=== PATIENT | female | born 1945 | race Caucasian/White ===

== ENCOUNTER → 2017-01-13 | Outpatient (CLI) | payer OTHER ==
[2016-06-02 11:00] VITALS: BP 120/70
[~2017-01-13] MED LIST: ASPI-482 PO; BIOT25006 PO; CHOL10003 PO; CITA20TA5 PO; CLOP75TA PO; CYAN10005 PO; DOCU-109 PO; FERR-26 PO; GABA-585 PO; LEVE500T6 PO; LEVO25TA4 PO; METO-313 PO; METO25TA4 PO; NAPR220C4 PO; PANT40TA5 PO; PHEN100C PO; ROPI1TAB PO; SIMV10TA3 PO
--- NOTE | 2017-01-13 11:06 | RAD ---
DATE: January 13, 2017 EXAM: DIGITAL DIAGNOSTIC BILATERAL, BREAST LEFT. LEFT BREAST SONOGRAPHY HISTORY: History of left breast cancer 10 years ago (?) treated with lumpectomy and radiation therapy. The patient's physician found a left breast lump. Not sure how long it has been there. The patient has not noticed anything new. COMPARISON: Previous mammograms are not available. This is considered a new baseline study. This study was interpreted with the benefit of Computerized Aided Detection (CAD). FINDINGS: The breast parenchyma shows scattered fibroglandular densities. The left breast is smaller in comparison to the right side and there is scarring of the left breast from the lumpectomy. A metallic BB was placed in the area of the palpable lump. 3 large calcified oil cysts are seen secondary to fat necrosis from previous surgery. The largest measures 2.6 cm. There are no other dominant suspicious masses, no suspicious pleomorphic microcalcifications or evidence of architectural distortion. LEFT BREAST SONOGRAPHY: High-resolution sonography of the palpable lump of left breast was performed. 2 of the calcified oil cysts are seen with acoustic shadowing from the dense calcification. The largest measures 2.5 cm in size. Smaller one measures almost 1 cm in size. IMPRESSION: No mammographic indicators for malignancy. Palpable lump corresponds to a cluster of 3 large calcified oil cysts related to fat necrosis from previous surgery. This is a benign finding. BI-RADS CATEGORY: 2 BENIGN FINDING RECOMMENDED FOLLOW-UP: 12M 12 MONTH FOLLOW-UP PQRS compliance statement: Patient information was entered into a reminder system with a target due date January 14, 2018 for the next mammogram. Mammography is a sensitive method for finding small breast cancers, but it does not detect them all and is not a substitute for careful clinical examination. A negative mammogram does not negate a clinically suspicious finding and should not result in delay in biopsying a clinically suspicious abnormality. "Our facility is accredited by the [employer]ography [employer]." The patient's breast density may affect the ability of mammography to detect breast cancer. There are 4 categories of breast density, A, B, C and D. Breast density A means that most of the breast tissue is replaced with adipose tissue and therefore is not dense. Breast density B means that the breast tissue is mildly dense and scattered. Breast density C means that the breast tissue is heterogeneously dense. Breast density D means that the breast tissue is very dense. Breast densities especially C and D may decrease the sensitivity of mammography to detect breast cancer. Therefore, the patient may benefit from 3-D breast mammography (3D breast tomography) as a part of their screening mammogram. Insurance may or may not pay for this additional imaging. The patient's breast density based on today's mammogram is category B.
== END | disposition home or self-care (01) ==
LOC: MAMMO 09:44
PROVIDERS: ATTEND Internal Medicine
DX: C50.912 Malignant neoplasm of unspecified site of left female breast (principal); N63 Unspecified lump in breast; M79.89 Other specified soft tissue disorders; Z85.3 Personal history of malignant neoplasm of breast
CPT/HCPCS: 76641; G0204; 77066

== ENCOUNTER → 2017-04-14 | Outpatient (CLI) | payer OTHER ==
[2017-03-05 15:09] VITALS: BP 131/66
[~2017-04-14] MED LIST changes: +LISI-338 PO
--- NOTE | 2017-04-14 12:29 | CARD ---
APPROVED REPORT EXAM: Two-dimensional and M-mode echocardiogram with Doppler and color Doppler. Other Information Quality : Good INDICATION Ischemic Cardiomyopathy 2D DIMENSIONS RVDd2.5 (2.9-3.5cm)Left Atrium(2D)3.6 (1.6-4.0cm) IVSd0.9 (0.7-1.1cm)Aortic Root(2D)2.9 (2.0-3.7cm) LVDd5.0 (3.9-5.9cm)LVOT Diameter2.0 (1.8-2.4cm) PWd0.9 (0.7-1.1cm)LVDs2.9 (2.5-4.0cm) FS (%) 30.0 %SV84.3 ml LVEF(%)60.0 (>50%) Aortic Valve AoV Peak Samuel.139.3cm/sAoV VTI29.1cm AO Peak GR.7.8mmHgLVOT Peak Samuel.82.5cm/s LVOT VTI 19.27cmAO Mean GR.4mmHg DAYANARA (VMAX)1.37vo9OOD (VTI)2.07cm2 AI P 1/2 Stxb427sn Mitral Valve MV E Oidycfvg09.9cm/sMV DECEL [id number] MV A Xafobovy25.8cm/sMV HZX23yw E/A Ratio0.6MVA (PHT)3.09cm2 TDI E/Lateral E'9.8E/Medial E'10.7 Tricuspid Valve TR P. Vfzfajnt256ch/sRAP WQBEBDGZ8icWh TR Peak Gr.70qiSnTKDO40tqHg Pulmonary Vein S1 Gkugezez20.4cm/sD2 Mnilaqkq20.7cm/s LEFT VENTRICLE The left ventricle is normal size. There is normal left ventricular wall thickness. The left ventricu lar systolic function is normal. The Ejection Fraction is 55-60%. There is normal LV segmental wall m otion. Transmitral Doppler flow pattern is Grade I-abnormal relaxation pattern. RIGHT VENTRICLE The right ventricle is normal size. The right ventricular systolic function is normal. ATRIA The left atrium size is normal. The right atrium size is normal. The interatrial septum is intact wit h no evidence for an atrial septal defect or patent foramen ovale as noted on 2-D or Doppler imaging. AORTIC VALVE The aortic valve is calcified but opens well. Doppler and Color Flow revealed mild to moderate aortic regurgitation. There is no significant aortic valvular stenosis. MITRAL VALVE The mitral valve is normal in structure and function. There is no evidence of mitral valve prolapse. There is no mitral valve stenosis. Doppler and Color-flow revealed trace to mild mitral regurgitation . TRICUSPID VALVE The tricuspid valve is normal in structure and function. Doppler and Color Flow revealed mild tricusp id regurgitation. There is mild pulmonary hypertension. The PA pressure was estimated at 32 mmHg. The re is no tricuspid valve stenosis. PULMONIC VALVE The pulmonary valve is normal in structure and function. Doppler and Color Flow revealed trace pulmon ic valvular regurgitation. There is no pulmonic valvular stenosis. GREAT VESSELS The aortic root is normal in size. The ascending aorta is normal in size. The IVC is normal in size a nd collapses >50% with inspiration. PERICARDIAL EFFUSION There is no evidence of significant pericardial effusion. Critical Notification Critical Value: No <Conclusion> The left ventricular systolic function is normal. The Ejection Fraction is 55-60%. There is normal LV segmental wall motion. Transmitral Doppler flow pattern is Grade I-abnormal relaxation pattern. Mild to moderate aortic regurgitation. Trace to mild mitral regurgitation. Mild tricuspid regurgitation. The PA pressure was estimated at 32 mmHg. There is no evidence of significant pericardial effusion.
== END | disposition home or self-care (01) ==
LOC: ECHO 09:41
PROVIDERS: ATTEND Internal Medicine Cardiovascular Disease
DX: I08.2 Rheumatic disorders of both aortic and tricuspid valves (principal); I25.5 Ischemic cardiomyopathy
CPT/HCPCS: 93306

== ENCOUNTER 2017-06-03 16:49 | Emergency (ER) | payer OTHER ==
[~2017-06-03] VITALS: Ht 167.6 cm; Wt 84.4 kg
[2017-06-03] MEDS ORDERED: levETIRAcetam 1,000 MG in IV DEXTROSE 5% 100 ML IV ONE (17:15)
--- NOTE | 2017-06-03 17:17 | PHYS DOC ---
Past Medical History Past Medical History: CVA, Depression, GERD, Hypothyroid, HI, Seizure, Other Additional Past Medical Histor: chronic back pain,OVERDOSE Past Surgical History: Other Additional Past Surgical Histo: left lumpectomy, gastric sleeve,STENT PLACEMENT Alcohol Use: Sober Drug Use: None Adult General Chief Complaint Chief Complaint: UPPER EXTREMITY PAIN [facility] HPI Patient is a 72 year old female who presents with in planes of possible seizures that involved shaking of the left arm and leg but no loss of consciousness intermittent over the past 12 hours she's also felt anxious. Denies any headache blurry vision difficulty swallowing or speaking or moving her arms or legs. She is a cane or a walker for assistance at times. Previous stroke giving her left-sided weakness and a prior admission back in February for seizure disorder and elevated troponin with a negative cardiac stress test. Also history of alcohol abuse lives by herself. Review of the record shows that she takes Keppra and Dilantin although she is not sure what she takes. Review of Systems Review of Systems Constitutional: Denies fever or chills [] Eyes: Denies change in visual acuity, redness, or eye pain [] HENT: Denies nasal congestion or sore throat [] Respiratory: Denies cough or shortness of breath [] Cardiovascular: No additional information not addressed in HPI [] GI: Denies abdominal pain, nausea, vomiting, bloody stools or diarrhea [] : Denies dysuria or hematuria [] Musculoskeletal: Denies back pain or joint pain [] Integument: Denies rash or skin lesions [] Neurologic: Denies headache, focal weakness or sensory changes [] Endocrine: Denies polyuria or polydipsia [] All other systems were reviewed and found to be within normal limits, except as documented in this note. Current Medications Current Medications Current Medications Medications (Trade) Dose Ordered Sig/Susie Start Time Stop Time Status Last Admin Dose Admin Ceftriaxone Sodium 50 ml @ 100 mls/hr 1X ONCE 06/03/17 20:00 06/03/17 20:29 DC 06/03/17 20:06 100 MLS/HR Levetiracetam 1000 mg/Dextrose 110 ml @ 440 mls/hr 1X ONCE 06/03/17 17:15 06/03/17 17:29 Cancel Levetiracetam 1000 mg/Sodium Chloride 110 ml @ 440 mls/hr 1X ONCE 06/03/17 17:20 06/03/17 17:29 DC 06/03/17 17:40 440 MLS/HR Lorazepam (Ativan) 1 mg 1X ONCE 06/03/17 17:15 06/03/17 17:16 DC 06/03/17 17:21 1 MG Allergies Allergies Allergies Coded Allergies Type Severity Reaction Last Updated Verified No Known Drug Allergies 06/30/15 No Physical Exam Physical Exam Constitutional: Well developed, well nourished, no acute distress, non-toxic appearance. [] HENT: Normocephalic, atraumatic, bilateral external ears normal, oropharynx moist, no oral exudates, nose normal. [] Eyes: PERRLA, EOMI, conjunctiva normal, no discharge. [] Neck: Normal range of motion, no tenderness, supple, no stridor. [] Cardiovascular:Heart rate regular rhythm, no murmur [] Lungs & Thorax: Bilateral breath sounds clear to auscultation [] Abdomen: Bowel sounds normal, soft, no tenderness, no masses, no pulsatile masses. [] Skin: Warm, dry, no erythema, no rash. [] Back: No tenderness, no CVA tenderness. [] Extremities: No tenderness, no cyanosis, no clubbing, ROM intact, no edema. [] Neurologic: Alert and oriented X 3, normal motor function, normal sensory function, no focal deficits noted. Intermittent tremors and shakes involving the left arm and left leg are completely conscious and talking during the entire episodes last seconds at a time. [] Psychologic: Affect normal, judgement normal, mood normal. [] Current Patient Data Vital Signs Vital Signs Date Time Temp Pulse Resp B/P (MAP) Pulse Ox O2 Delivery O2 Flow Rate FiO2 06/03/17 20:00 62 162/76 (104) 96 Room Air 06/03/17 17:43 20 06/03/17 16:58 98.1 98.1 Lab Values Laboratory Tests Test 06/03/17 17:11 06/03/17 17:55 White Blood Count 5.7 x10^3/uL (4.0-11.0) Red Blood Count 3.75 x10^6/uL (3.50-5.40) Hemoglobin 11.6 g/dL (12.0-15.5) L Hematocrit 35.1 % (36.0-47.0) L Mean Corpuscular Volume 94 fL (79-100) Mean Corpuscular Hemoglobin 31 pg (25-35) Mean Corpuscular Hemoglobin Concent 33 g/dL (31-37) Red Cell Distribution Width 12.9 % (11.5-14.5) Platelet Count 189 x10^3/uL (140-400) Neutrophils (%) (Auto) 41 % (31-73) Lymphocytes (%) (Auto) 45 % (24-48) Monocytes (%) (Auto) 11 % (0-9) H Eosinophils (%) (Auto) 4 % (0-3) H Basophils (%) (Auto) 0 % (0-3) Neutrophils # (Auto) 2.3 x10^3uL (1.8-7.7) Lymphocytes # (Auto) 2.5 x10^3/uL (1.0-4.8) Monocytes # (Auto) 0.6 x10^3/uL (0.0-1.1) Eosinophils # (Auto) 0.2 x10^3/uL (0.0-0.7) Basophils # (Auto) 0.0 x10^3/uL (0.0-0.2) Sodium Level 143 mmol/L (136-145) Potassium Level 3.7 mmol/L (3.5-5.1) Chloride Level 105 mmol/L (98-107) Carbon Dioxide Level 27 mmol/L (21-32) Anion Gap 11 (6-14) Blood Urea Nitrogen 14 mg/dL (7-20) Creatinine 0.8 mg/dL (0.6-1.0) Estimated GFR (Cockcroft-Gault) 70.7 BUN/Creatinine Ratio 18 (6-20) Glucose Level 85 mg/dL (70-99) Calcium Level 8.9 mg/dL (8.5-10.1) Magnesium Level 1.7 mg/dL (1.8-2.4) L Total Bilirubin 0.3 mg/dL (0.2-1.0) Aspartate Amino Transferase (AST) 21 U/L (15-37) Alanine Aminotransferase (ALT) 23 U/L (14-59) Alkaline Phosphatase 88 U/L (46-116) Troponin I Quantitative < 0.017 ng/mL (0.000-0.055) Total Protein 6.4 g/dL (6.4-8.2) Albumin 3.4 g/dL (3.4-5.0) Albumin/Globulin Ratio 1.1 (1.0-1.7) Phenytoin (Dilantin) Level 3.3 mcg/mL (10.0-20.0) L Phenytoin Last Dose Date Phenytoin Last Dose Time Urine Collection Type Unknown Urine Color Yellow Urine Clarity Clear Urine pH 6.5 Urine Specific Lottie 1.010 Urine Protein Negative mg/dL (NEG-TRACE) Urine Glucose (UA) Negative mg/dL (NEG) Urine Ketones (Stick) Negative mg/dL (NEG) Urine Blood Negative (NEG) Urine Nitrite Negative (NEG) Urine Bilirubin Negative (NEG) Urine Urobilinogen Dipstick 0.2 mg/dL (0.2 mg/dL) Urine Leukocyte Esterase Moderate (NEG) Urine RBC 0 /HPF (0-2) Urine WBC 1-4 /HPF (0-4) Urine Squamous Epithelial Cells Many /LPF Urine Bacteria Moderate /HPF (0-FEW) Urine Mucus Slight /LPF Laboratory Tests 06/03/17 17:11 Laboratory Tests 06/03/17 17:11 EKG EKG EKG shows normal sinus rhythm rate of 63 no STEMI QTC normal. My interpretation Radiology/Procedures Radiology/Procedures CT head negative per radiology report[] Course & Med Decision Making Course & Med Decision Making Pertinent Labs and Imaging studies reviewed. (See chart for details) [The patient was stable during her stay. Blood work and imaging were unremarkable. There was no observed seizure activity. She was loaded with Keppra IV. Urinalysis demonstrated possible urinary tract infection we will give IV Rocephin and placed on Macrobid orally. she was able to ambulate Discussed with results with the patient when told she would be able to go home she said that would be "awesome".] Dragon Disclaimer Dragon Disclaimer This electronic medical record was generated, in whole or in part, using a voice recognition dictation system. Departure Departure Impression: Primary Impression: Occasional tremors Additional Impression: Urinary tract infection Disposition: HOME, SELF-CARE Condition: IMPROVED Referrals: KAVYA PETTIT MD (PCP) Patient Instructions: Urinary Tract Infection, [id number] Scripts Nitrofurantoin Monohyd/M-Cryst (MACROBID 100 MG CAPSULE) 100 Mg Capsule 1 CAP PO BID, #14 CAP Prov: ZENAIDA EVERETT MD 06/03/17 Problem Qualifiers ZENAIDA EVERETT MD Jun 03, 2017 17:17
[2017-06-03 17:23] LABS: BASO % 0 % (0-3); EOS % 4 % (0-3); HEMATOCRIT 35.1 % (36.0-47.0); HEMOGLOBIN 11.6 g/dL (12.0-15.5); LYMPH # 2.5 x10^3/uL (1.0-4.8); LYMPH % 45 % (24-48); MEAN CORPUSCULAR HEMOGLOBIN 31 pg (25-35); MEAN CORPUSCULAR HGB CONC 33 g/dL (31-37); MEAN CORPUSCULAR VOLUME 94 fL (79-100); MONO % 11 % (0-9); NEUT % 41 % (31-73); PLATELET COUNT 189 x10^3/uL (140-400); RED BLOOD COUNT 3.75 x10^6/uL (3.50-5.40); RED CELL DISTRIBUTION WIDTH 12.9 % (11.5-14.5); WHITE BLOOD COUNT 5.7 x10^3/uL (4.0-11.0)
--- NOTE | 2017-06-03 17:42 | RAD ---
CT HEAD WO CONTRAST dated 06/03/2017 5:25 PM Indication:.SEIZURES, LT ARM TINGLING, PRIOR SENT. Comparison: 03/02/2017 Technique: Contiguous axial imaging the head was performed from skull base to vertex. One or more of the following individualized dose reduction techniques were utilized for this examination: 1. Automated exposure control 2. Adjustment of the mA and/or kV according to patient size 3. Use of iterative reconstruction technique Findings: Ventricles and sulci are mildly prominent for age. No midline shift or mass effect. Mild patchy low density in the deep/subcortical periventricular white matter. Remote cortical infarct of the right frontal lobe and right parietal lobe, unchanged. No hemorrhage or extra axial collection. Posterior fossa and brainstem unremarkable. Visualized paranasal sinuses and mastoid air cells are clear. No apparent calvarial abnormality. IMPRESSION: 1. No evidence of acute intracranial hemorrhage or mass. 2. Mild chronic small vessel ischemic changes and atrophy. There are remote right frontal and right parietal infarcts, unchanged. Electronically signed by: Arslan Mane MD (06/03/2017 5:39 PM) [id number]
[2017-06-03 17:45] LABS: ANION GAP 11 (6-14); BLOOD UREA NITROGEN 14 mg/dL (7-20); BUN/CREATININE RATIO 18 (6-20); CALCIUM 8.9 mg/dL (8.5-10.1); CARBON DIOXIDE 27 mmol/L (21-32); CHLORIDE 105 mmol/L (98-107); CREATININE 0.8 mg/dL (0.6-1.0); GFR 70.7; GLUCOSE 85 mg/dL (70-99); POTASSIUM 3.7 mmol/L (3.5-5.1); SODIUM 143 mmol/L (136-145)
[2017-06-03 17:51] LABS: ALBUMIN 3.4 g/dL (3.4-5.0); ALBUMIN/GLOBULIN RATIO 1.1 (1.0-1.7); ALK PHOS 88 U/L (46-116); ALT (SGPT) 23 U/L (14-59); AST (SGOT) 21 U/L (15-37); MAGNESIUM 1.7 mg/dL (1.8-2.4); TOTAL BILIRUBIN 0.3 mg/dL (0.2-1.0); TOTAL PROTEIN 6.4 g/dL (6.4-8.2)
[2017-06-03 19:26] LABS: BILIRUBIN,URINE NEGATIVE (NEG); GLUCOSE,URINE NEGATIVE (NEG); NITRITE,URINE NEGATIVE (NEG); PH,URINE 6.5; PROTEIN,URINE NEGATIVE (NEG-TRACE); UROBILINOGEN,URINE 0.2 mg/dL (0.2 mg/dL)
[2017-06-03 19:33] LABS: BACTERIA,URINE MODERATE /HPF (0-FEW); RBC,URINE 0 /HPF (0-2); SQUAMOUS EPITHELIAL CELL,UR MANY /LPF
[2017-06-03] MEDS ORDERED: NITR100C62 PO (19:57)
[2017-06-03 20:00] VITALS: BP 162/76
--- NOTE | 2017-06-04 06:32 | EKG ---
[facility] [address] [place] [address] Test Date: 2017-06-03 Test Time: 17:01:57 Pat Name: TERRI LINDSEY Department: Room: Gender: F [employer]ressed [employer] Supervisor: : [id number] Requested By: ZENAIDA EVERETT Order Number: [id number] Reading MD: Niranjan Rodriguez MD Measurements Intervals [place] Rate: 63 P: 36 MS: 154 QRS: 26 QRSD: 74 T: 72 QT: 428 QTc: 441 Interpretive Statements SINUS RHYTHM NON-SPECIFIC ST/T CHANGES Electronically Signed On 06-04-2017 16:10:55 COAGULATING BATH MIXER by Niranjan Rodriguez MD
== END 2017-06-03 20:38 | disposition home or self-care (01) ==
LOC: ER 16:49
DX: R25.1 Tremor, unspecified (principal); N39.0 Urinary tract infection, site not specified; E03.9 Hypothyroidism, unspecified; K21.9 Gastro-esophageal reflux disease without esophagitis; G89.29 Other chronic pain; Z86.73 Personal history of transient ischemic attack (TIA), and cerebral infarction without residual deficits; I25.2 Old myocardial infarction
CPT/HCPCS: 36415; 70450; 80053; 80185; 81001; 83735; 84484; 85025; 87086; 93005; 96365; 96367; 96375; 99285; J0690; J1953; J2060

== ENCOUNTER 2017-08-29 23:07 | Inpatient (IN) | payer OTHER ==
[2017-08-29 23:24] LABS: ADD MAN DIFF? NO
[2017-08-29 23:25] LABS: BASO # 0.1 x10^3/uL (0.0-0.2); BASO % 1 % (0-3); EOS # 0.1 x10^3/uL (0.0-0.7); EOS % 2 % (0-3); HEMATOCRIT 32.6 % (36.0-47.0); HEMOGLOBIN 10.9 g/dL (12.0-15.5); LYMPH # 1.4 x10^3/uL (1.0-4.8); LYMPH % 18 % (24-48); MEAN CORPUSCULAR HEMOGLOBIN 30 pg (25-35); MEAN CORPUSCULAR HGB CONC 34 g/dL (31-37); MEAN CORPUSCULAR VOLUME 90 fL (79-100); MONO # 0.6 x10^3/uL (0.0-1.1); MONO % 8 % (0-9); NEUT # 5.6 x10^3uL (1.8-7.7); NEUT % 71 % (31-73); PLATELET COUNT 192 x10^3/uL (140-400); RED BLOOD COUNT 3.63 x10^6/uL (3.50-5.40); RED CELL DISTRIBUTION WIDTH 13.7 % (11.5-14.5); WHITE BLOOD COUNT 7.9 x10^3/uL (4.0-11.0)
[2017-08-29] MEDS: IV NORMAL SALINE 1000ML BAG 1,000 ML IV (23:30)
[2017-08-29 23:34] LABS: ANION GAP 11 (6-14); BLOOD UREA NITROGEN 19 mg/dL (7-20); BUN/CREATININE RATIO 21 (6-20); CALCIUM 8.2 mg/dL (8.5-10.1); CARBON DIOXIDE 27 mmol/L (21-32); CHLORIDE 107 mmol/L (98-107); CREATININE 0.9 mg/dL (0.6-1.0); GFR 61.7; GLUCOSE 119 mg/dL (70-99); POTASSIUM 3.8 mmol/L (3.5-5.1); SODIUM 145 mmol/L (136-145)
[2017-08-29 23:35] LABS: PARTIAL THROMBOPLASTIN TIME 23 SEC (24-38)
[2017-08-29 23:40] LABS: ALBUMIN 3.1 g/dL (3.4-5.0); ALBUMIN/GLOBULIN RATIO 1.1 (1.0-1.7); ALK PHOS 84 U/L (46-116); ALT (SGPT) 15 U/L (14-59); AST (SGOT) 17 U/L (15-37); TOTAL BILIRUBIN 0.3 mg/dL (0.2-1.0); TOTAL PROTEIN 5.8 g/dL (6.4-8.2)
[2017-08-29 23:42] LABS: TROPONINI < 0.017 ng/mL (0.000-0.055)
[2017-08-30 01:15] LABS: BILIRUBIN,URINE NEGATIVE (NEG); CLARITY,URINE CLEAR; COLOR,URINE YELLOW; GLUCOSE,URINE NEGATIVE (NEG); NITRITE,URINE NEGATIVE (NEG); PROTEIN,URINE 30 mg/dL (NEG-TRACE); UROBILINOGEN,URINE 0.2 mg/dL (0.2 mg/dL)
[2017-08-30 01:22] LABS: BACTERIA,URINE FEW /HPF (0-FEW); RBC,URINE OCC /HPF (0-2); SQUAMOUS EPITHELIAL CELL,UR OCC /LPF; WBC,URINE OCC /HPF (0-4)
[2017-08-30 01:23] LABS: HYALINE CASTS, URINE MODERATE /HPF
[2017-08-30] MEDS ORDERED: ONDANSETRON PF 4 MG/2 ML VIAL. IV (02:00)
[2017-08-30] MEDS ORDERED: ACETAMINOPHEN 325 MG TABLET. PO (02:00)
[2017-08-30 02:28] LABS: BARBITURATES NEG (NEG); BENZODIAZEPINES POS (NEG); CANNABINOIDS NEG (NEG); COCAINE NEG (NEG); METHADONE NEG (NEG); OPIATES NEG (NEG); PHENCYCLIDINE NEG (NEG)
[2017-08-30 02:29] LABS: ETHANOL < 10 mg/dL (0-10)
[2017-08-30 02:29] LABS: AMPHETAMINE/METHAMPHETAMINE NEG (NEG); ETHANOL, URINE NEG (NEG)
[2017-08-30] MEDS: ASPIRIN 325 MG TABLET PO (03:14)
[2017-08-30] MEDS: MORPHINE SULFATE 2 MG/ML DISP.SYRIN. IV (06:18)
[2017-08-30] MEDS: CYANOCOBALAMIN (VITAMIN B-12) 1,000 MCG TABLET. PO (14:35)
[2017-08-30] MEDS: LEVOTHYROXINE 25 MCG TABLET. PO (14:35)
[2017-08-30] MEDS: CHOLECALCIFEROL (VITAMIN D3) 1,000 UNIT TABLET PO (14:35)
[2017-08-30] MEDS: GABAPENTIN 300 MG CAPSULE. PO (14:36)
[2017-08-30] MEDS: CLOPIDOGREL BISULFATE 75 MG TABLET PO (14:36)
[2017-08-30] MEDS: PANTOPRAZOLE 40 MG TABLET.DR. PO (14:36)
[2017-08-30] MEDS: LISINOPRIL 5 MG TABLET. PO (14:36)
[2017-08-30] MEDS: CITALOPRAM 20 MG TABLET. PO (14:36)
[2017-08-30] MEDS ORDERED: METOPROLOL TART IMMED RELEASE 25 MG TABLET. PO (21:00)
[2017-08-30] MEDS ORDERED: rOPINIRole 1 MG TABLET. PO (21:00)
[2017-08-30] MEDS ORDERED: NITROFURANTOIN MONOHYD/M-CRYST 100 MG CAPSULE. PO (21:00)
[2017-08-30] MEDS ORDERED: levETIRAcetam 250 MG TABLET PO (21:00)
[2017-08-30] MEDS ORDERED: DOCUSATE SODIUM 100 MG CAPSULE. PO (21:00)
[2017-08-31] MEDS ORDERED: ASPIRIN ENTERIC COATED 81 MG TABLET.DR. PO (09:00)
== END 2017-08-30 14:50 | disposition home or self-care (01) | DRG 101 ==
LOC: ER 23:07 → 6 SOUTH 08-30 01:29
DX: G40.909 Epilepsy, unspecified, not intractable, without status epilepticus (principal); I69.354 Hemiplegia and hemiparesis following cerebral infarction affecting left non-dominant side; R41.4 Neurologic neglect syndrome; E03.9 Hypothyroidism, unspecified; I25.2 Old myocardial infarction; K21.9 Gastro-esophageal reflux disease without esophagitis; Z82.3 Family history of stroke; Z82.49 Family history of ischemic heart disease and other diseases of the circulatory system; Z90.710 Acquired absence of both cervix and uterus; Z91.5 Personal history of self-harm; F32.9 Major depressive disorder, single episode, unspecified; F41.9 Anxiety disorder, unspecified; G89.29 Other chronic pain; M54.5 Low back pain; Z60.2 Problems related to living alone
CPT/HCPCS: 36415; 70450; 72125; 80053; 80307; 81001; 84484; 85025; 85610; 85730; 93005; 96360; 99285-25; G0480; J2270; J7030

== ENCOUNTER → 2018-03-19 | Outpatient (CLI) | payer OTHER ==
[2017-08-30 14:36] VITALS: BP 150/65
[~2018-03-19] MED LIST changes: -CITA20TA5 PO; +CITA20TA6 PO; +CITA40TA5 PO; -FERR-26 PO; +FERR325T14 PO; +GABA-586 PO; +NITR100C62 PO
--- NOTE | 2018-03-19 12:06 | RAD ---
CT chest without contrast dated 03/19/2018. No comparison available. CLINICAL INDICATION: 50 pack-year smoking history. Lung cancer screening. TECHNIQUE: Contiguous axial imaging the chest performed without the administration of intravenous contrast. Thin cut axial and coronal reconstructions using low-dose lung cancer screening protocol. One or more of the following individualized dose reduction techniques were utilized for this examination: 1. Automated exposure control 2. Adjustment of the mA and/or kV according to patient size 3. Use of iterative reconstruction technique. FINDINGS: Heart size upper limits of normal. No pericardial effusion. Coronary artery calcifications. Mild ectasia of the ascending thoracic aorta measuring 3.7 cm transverse dimension. No mediastinal, hilar or axillary lymphadenopathy. 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 Thyroid gland unremarkable. Central airways are patent. There is diffuse bronchial wall thickening. Mild to moderate upper zone predominant centrilobular emphysema. There is some patchy groundglass density in the right lower lobe. 3 mm noncalcified nodule along the minor fissure on the right on image 135. Tiny subpleural density in the right middle lobe on image 158 measuring 3 mm. 6 mm subpleural nodule in the left lower lobe on image 187. Additional vague subpleural nodule in the left lower lobe on image 187 measures 3 mm. No consolidation or pleural effusion. No pneumothorax. Images of the upper abdomen unremarkable. The prior gastric sleeve procedure. Mild multilevel spondylosis. No acute bony abnormality. IMPRESSION: 1. There are a few small scattered noncalcified pulmonary nodules within both lungs, nonspecific. Recommend follow-up imaging in one year to ensure stability. Lung RADS category 2. 2. Mild to moderate upper zone predominant emphysema. 3. Coronary artery calcifications and mild ectasia of the ascending thoracic aorta. Electronically signed by: Arslan Mane MD (03/19/2018 12:03 PM) [id number]
--- NOTE | 2018-03-19 12:28 | RAD ---
DATE: 03/19/2018 EXAM: MAMMO QUIN DIAG BILAT HISTORY: Left breast tenderness, previous left breast malignancy COMPARISON: 01/13/2017 This study was interpreted with the benefit of Computerized Aided Detection (CAD). The breast parenchyma shows scattered fibroglandular densities. Breast parenchyma level B. FINDINGS: 2-D and 3-D tomosynthesis imaging was performed in CC and MLO projections. There is unchanged left breast deformity with skin thickening. There are large dense coarse dystrophic-type calcifications laterally on the left compatible with post therapeutic change. The patient reports pain in this region. There are additional small scattered microcalcifications in both breasts which are stable. No new or enlarging breast densities are seen. IMPRESSION: Stable mammograms without evidence of malignancy. BI-RADS CATEGORY: 2 BENIGN FINDING(S) RECOMMENDED FOLLOW-UP: 12M 12 MONTH FOLLOW-UP PQRS compliance statement: Patient information was entered into a reminder system with a target due date for the next mammogram. Mammography is a sensitive method for finding small breast cancers, but it does not detect them all and is not a substitute for careful clinical examination. A negative mammogram does not negate a clinically suspicious finding and should not result in delay in biopsying a clinically suspicious abnormality. "Our facility is accredited by the [employer] Mammography [employer]."
== END | disposition home or self-care (01) ==
LOC: CT 11:20
PROVIDERS: ATTEND Family Medicine Geriatric Medicine
DX: Z12.2 Encounter for screening for malignant neoplasm of respiratory organs (principal); J43.2 Centrilobular emphysema; M47.894 Other spondylosis, thoracic region; I77.810 Thoracic aortic ectasia; I25.10 Atherosclerotic heart disease of native coronary artery without angina pectoris; I13.0 Hypertensive heart and chronic kidney disease with heart failure and stage 1 through stage 4 chronic kidney disease, or unspecified chronic kidney disease; E11.22 Type 2 diabetes mellitus with diabetic chronic kidney disease; I50.22 Chronic systolic (congestive) heart failure; N18.2 Chronic kidney disease, stage 2 (mild); E87.6 Hypokalemia; E78.5 Hyperlipidemia, unspecified; K21.9 Gastro-esophageal reflux disease without esophagitis; E03.9 Hypothyroidism, unspecified; R92.8 Other abnormal and inconclusive findings on diagnostic imaging of breast; Z68.26 Body mass index [BMI] 26.0-26.9, adult; Z87.891 Personal history of nicotine dependence; Z90.710 Acquired absence of both cervix and uterus; Z85.3 Personal history of malignant neoplasm of breast; Z87.440 Personal history of urinary (tract) infections; Z86.73 Personal history of transient ischemic attack (TIA), and cerebral infarction without residual deficits; Z82.3 Family history of stroke; Z82.49 Family history of ischemic heart disease and other diseases of the circulatory system
CPT/HCPCS: 77066; G0279; G0297; 77062